=== PATIENT | male | born 1930 | race Caucasian/White ===

== ENCOUNTER → 2017-08-23 | Outpatient (CLI) | payer MEDICARE, BC ==
[~2017-08-23] MED LIST: ACE500 PO; ACET-1927 PO; ACET-1935 PO; ACET-2031 PO; AMOX-559 PO; ANITBIOTIC; ASPI-1441 PO; AZIT-18 PO; BACDS PO; CA C1TAB85 PO; CARB-275 OP; CARB1DRO25 OP; CARV25TA77 PO; CEF300 PO; CEP500 PO; CET10 PO; CHOL100059 PO; CLO75 PO; DEXT1TAB PO; DIA5 PO; DOCU-214 PO; DORZ10DR20 OD; DORZ10DR20 OP; DOXY-179 PO; ERG400 PO; ERGO500025 PO; EZET1TAB64 PO; FELO10TA34 PO; FELO5TAB34 PO; FLUT16SP20 NS; FOL1 PO; GUAI600T PO; IOPAMIDOL 76% 75 ML INFUS BTL 75 ML ONE; IPRA30SP NS; L.AC1CAP6 PO; LIDOCAINE; LISI-353 PO; LOR5/325 PO; LOSA-50 PO; MAALOX; METO-231 PO; METO-259 PO; METO25TA89 PO; METR45GE7 TP; METXL50 PO; MULT-820 PO; NAPR-1043 PO; NEOSYNEPHRINE; NIFS30 PO; NIT4 SL; OFF PLAVIX; OM-31CAP12 PO; OMEP-218 PO; OXYC20TA86 PO; PER PO; PHENA200 PO; SIMV-42 PO; SODI1PAC NS; SPIR25TA78 PO; TAM4 PO; TER2 PO; VALS1TAB64 PO; VALS1TAB96 PO; VALS40TA6 PO; [UNRECOGNIZED DRUG - CODE] PO; [UNRECOGNIZED DRUG - CODE] PO; [UNRECOGNIZED DRUG - CODE] TP; [UNRECOGNIZED DRUG - OTHER]; [UNRECOGNIZED DRUG - REMARK]
--- NOTE | 2017-08-23 10:24 | RADIOLOGY IMAGING REPORT ---
FACILITY: [facility] PATIENT NAME: Ochoa Cisneros : 1930 MR: [id number] V: [id number] EXAM DATE: ORDERING PHYSICIAN: MARIA C FELICIANO TECHNOLOGIST: Location: [facility] [place] Patient: Ochoa Cisneros : 1930 Visit/Account:[id number] Date of Sevice: 08/23/2017 ABDOMEN/PELVIS WITH CONTRAST HISTORY: Elevated PSA, hematuria TECHNIQUE: Following administration of IV contrast contiguous axial images acquired through the abdom en/pelvis. Coronal and sagittal reformatting also performed. Dose Lowering Technique One of the following dose optimization techniques was utilized in the performance of this exam: Autom ated exposure control; adjustment of the mA and/or kV according to the patient's size; or use of an i terative reconstruction technique. Specific details can be referenced in the facility's radiology C T exam operational policy. CONTRAST: 75 mL Isovue-370 COMPARISON: July 23, 2009 FINDINGS: Visualized lung bases: Moderate scarring in the lung bases bilaterally Hepatobiliary: There Is a 1.2 cm septated cyst lateral aspect right lobe of the liver Spleen: Negative. Adrenals: There is mild thickening of the left adrenal gland unchanged Pancreas: Negative. Kidneys ureters or bladder: There are bilateral upper pole renal cysts and additional small hypodensi ties in both kidneys likely representing additional cysts although are too small to characterize. Th e bladder is mostly decompressed Genitalia: Prostate gland appears enlarged and is extremely heterogeneous impinging upon the floor t he bladder GI: There is diverticulosis of the left-sided colon although no CT evidence of acute diverticulitis is a small hiatal hernia Vessels/spaces/nodes: There are severe vascular calcifications seen throughout the abdominal aorta a nd branch vessels. There is a right common iliac artery stent Bones/soft tissues: Negative. Additional findings: None pertinent. IMPRESSION: There is moderate scarring in the lung bases bilaterally Bilateral upper pole renal cyst and additional small hypodensities in both kidneys which likely repre sent cysts although are too small to characterize The prostate gland is enlarged and extremely heterogeneous impinging upon the floor the bladder Additional chronic findings as described Report Dictated By: Eva Rose MD at 08/23/2017 9:27 AM Report E-Signed By: Eva Rose MD at 08/23/2017 10:20 AM WSN:[email or web address]
--- NOTE | 2017-08-23 12:51 | RADIOLOGY IMAGING REPORT ---
FACILITY: [facility] PATIENT NAME: Ochoa Cisneros : 1930 MR: [id number] V: [id number] EXAM DATE: ORDERING PHYSICIAN: MARIA C FELICIANO TECHNOLOGIST: Location: [facility] Patient: Ochoa Cisneros : 1930 Visit/Account:[id number] Date of Sevice: 08/23/2017 WHOLE BODY BONE SCAN HISTORY: Elevated PSA TECHNIQUE: 26.1 mCi technetium 99m HDP was injected intravenously. Delayed anterior and posterior wh ole body gamma camera images were obtained. Additional gamma camera images: Right left lateral skull COMPARISON: None. FINDINGS: Bone radiotracer activity: There is a focal area of isotope uptake over the right side of the mandib le. There are several focal areas of isotope uptake seen over the lower cervical spine likely degenerativ e in nature. There is additional small focal area of isotope uptake seen over the posterior aspect of an upper l eft rib. Degenerative type uptake is noted over the shoulders elbows the knees and the ankles Extraosseous radiotracer activity: Unremarkable. Renal and urinary collecting system activity: Unremarkable. IMPRESSION: Focal area of isotope uptake over the right side of the mandible may be related to dental issues. Cl inical correlation needed Several focal areas of isotope uptake over the lower cervical spine are likely degenerative in nature although could be confirmed with plain radiographs or cross-sectional imaging Small focal area of isotope uptake over the posterior aspect of an upper left rib likely related to a prior fracture Multi focal areas of degenerative type uptake Report Dictated By: Eva Rose MD at 08/23/2017 12:43 PM Report E-Signed By: Eva Rose MD at 08/23/2017 12:48 PM WSN:[email or web address]
== END ==
LOC: CT 01:23
PROVIDERS: ATTEND Urology
DX: M19.90 Unspecified osteoarthritis, unspecified site (principal); N28.1 Cyst of kidney, acquired; N40.0 Benign prostatic hyperplasia without lower urinary tract symptoms; K57.30 Diverticulosis of large intestine without perforation or abscess without bleeding; K44.9 Diaphragmatic hernia without obstruction or gangrene; I70.0 Atherosclerosis of aorta; Z95.818 Presence of other cardiac implants and grafts; R91.8 Other nonspecific abnormal finding of lung field
CPT/HCPCS: 74177; 78306; A9503; Q9967

== ENCOUNTER 2017-09-13 00:13 | Day surgery (SDC) | payer MEDICARE, BC ==
--- NOTE | 2017-09-11 09:15 | EKG ---
FACILITY: [facility] [place] PATIENT NAME: GENE HENRY : [id number] MR: [id number] V: [id number] EXAM DATE: ORDERING PHYSICIAN: MARIA C FELICIANO TECHNOLOGIST: CHANI Tillman Reason : PRE-OP Blood Pressure : / mmHG Vent. Rate : 074 BPM Atrial Rate : 074 BPM P-R Int : 126 ms QRS Dur : 084 ms QT Int : 394 ms P-R-T Axes : 074 054 060 degrees QTc Int : 437 ms Normal sinus rhythm Normal ECG When compared with ECG of 21-SEP-2014 08:10, No significant change was found Confirmed by JACQUELINE GUNTER ([id number]) on 09/11/2017 10:26:00 AM Referred By: BRADEN Confirmed By:JACQUELINE GUNTER
[2017-09-11 09:32] LABS: PLATELET COUNT, AUTOMATED 213 K/uL (150-450)
--- NOTE | 2017-09-12 16:27 | HISTORY AND PHYSICAL ---
DATE OF ADMISSION: September 13, 2017 CHIEF COMPLAINT Elevated PSA with abnormal digital rectal exam. HISTORY OF PRESENT ILLNESS The patient is an 87-year-old white male with a history of increasing PSA and significantly abnormal rectal exam. 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 At that time, he was evaluated with anesthetic cystoscopy in the OR as well as a CT and bilateral retrograde pyelograms which were all normal. At that time, his PSA was fairly stable at approximately 5.5 to 6. This was in 2009. Since that time , his PSA has steadily increased and is now currently 17. In 2010, a PCA3 test was performed which was positive. In 2013, a 4Kscore test was performed which revealed a 62% chance of having a high-grade cancer. Recently, he has had a CT scan performed which was negative for any evidence of metastatic or local disease. However, he did have an extremely heterogeneous prostate which measured approximately 40 mL. A bone scan was also negative. The patient has been extremely reluctant to undergo a biopsy of his prostate, and given the patient's age, I felt this was not an unreasonable request. However, now with his PSA approaching 20, having the diagnosis of prostate cancer may be beneficial in the near future if we need to initiate antigen deprivation therapy or other interventions. Patient is extremely anxious concerning a biopsy and possible side effects. I have had multiple extensive discussions with Mr. Cisneros concerning the above findings. The risk for sepsis is approximately 1:5000 and is increased in people who have been recently exposed to antibiotics or have been hospitalized or had foreign travel. He currently has none of these risk factors. Bleeding infections were also discussed and explained, which were extremely rare to have a significant bleeding episode. Increase in lower urinary tract symptoms was also explained and discussed. The plan is now to take the patient to the operating room for an anesthetic possible cystoscopy, followed by transrectal ultrasound biopsy of the prostate. PAST MEDICAL HISTORY * Peripheral vascular disease with claudication. * Hypercholesterolemia. * Irritable bowel syndrome. * Hypertension. * Remote history of bladder cancer in 1979. * History of TIA. * Basal cell carcinoma of the skin approximately 20 years ago. * History of gross painless hematuria. * Insomnia. * Gout. PAST SURGICAL HISTORY * Open simple prostatectomy. * Right orchiectomy. * Left inguinal hernia. * Transurethral resection of low-grade bladder tumor in 1980. * Local basal cell skin cancer removal. * Anesthetic cystoscopy with bilateral retrograde pyelograms 2009. * Colonoscopy. ALLERGIES LOSARTAN, ASPIRIN, and CEFDINIR. CURRENT MEDICATIONS * Lipitor. * Felodipine. * Nitrostat. * Multivitamins. FAMILY HISTORY Noncontributory. REVIEW OF SYSTEMS The patient denies shortness of breath, productive cough, chest pains, dyspnea on exertion, bleeding disorder, chronic headaches, gross hematuria, flank pain, change in weight, or decreased energy level. PHYSICAL EXAMINATION GENERAL: The patient is an elderly white male in no acute distress. HEENT: Normocephalic, atraumatic. CHEST: Clear to auscultation bilaterally. CARDIOVASCULAR: Regular rate and rhythm. ABDOMEN: Soft, nontender. No masses are palpated. GENITOURINARY: Deferred to the OR. EXTREMITIES: No clubbing, cyanosis, or edema. NEUROLOGIC: Nonfocal. IMPRESSION An 87-year-old white male with significantly increasing PSA with abnormal digital rectal exam, worrisome for prostate cancer. He has also had several bowel markers which also put him at an increased risk. PLAN We will perform transrectal ultrasound biopsy of the prostate with possible cystoscopy. AIXA
[~2017-09-13] VITALS: Ht 175.3 cm; Wt 56.7 kg
[~2017-09-13 00:13] MED LIST changes: +CETI1TAB80 PO; -IOPAMIDOL 76% 75 ML INFUS BTL 75 ML ONE
[2017-09-13] MEDS ORDERED: PROPOFOL EMUL(*) 10MG/ML 20 ML 20 ML ONE (07:54)
[2017-09-13] MEDS ORDERED: fentaNYL CITR 100 MCG/2 ML AMP ONE (07:54)
[2017-09-13] MEDS ORDERED: LIDOCAINE MPF 1% 5 ML VIAL ONE (07:54)
[2017-09-13] MEDS ORDERED: DEXAMETHASONE SOD 4 MG/ML VIAL ONE (07:54)
[2017-09-13] MEDS ORDERED: ONDANSETRON 4 MG/2 ML VIAL ONE (07:54)
[2017-09-13 08:34] VITALS: BP 188/87
[2017-09-13] MEDS ORDERED: MIDAZOLAM 2 MG/2 ML VIAL IVP PRN (09:25)
[2017-09-13] MEDS ORDERED: LIDOCAINE/SOD BICARB 8.4% SYR ID ONE (09:25)
[2017-09-13] MEDS ORDERED: FAMOTIDINE 20 MG TAB PO ONE (09:25)
[2017-09-13] MEDS ORDERED: LEVOFLOXACIN/D5W*500 MG/100 ML 100 ML IVPB ONE (09:25)
[2017-09-13] MEDS ORDERED: NORMOSOL R SOLN(*) 1000 ML BAG 1,000 ML IV PRN (09:25)
--- NOTE | 2017-09-13 09:53 | RADIOLOGY IMAGING REPORT ---
[facility] PATIENT NAME: Ochoa Cisneros : 1930 MR: [id number] V: [id number] EXAM DATE: [id number] ORDERING PHYSICIAN: MARIA C PEDERSEN TECHNOLOGIST: Location: [facility] Patient: Ochoa Cisneros : 1930 Visit/Account:[id number] Date of Sevice: 09/13/2017 Exam type: PROSTATE BIOPSY History: Elevated PSA Comparison: None. Findings: Prostate biopsy was performed by Dr. Pedersen. Sonographic assistance was provided. Please see Dr. Fernando spangler's note for complete details IMPRESSION: 1. As above Report Dictated By: Eva Rose MD at 09/13/2017 9:48 AM Report E-Signed By: Eva Rose MD at 09/13/2017 9:49 AM WSN:[email or web address]
[2017-09-13] MEDS ORDERED: DOCU-416 PO (09:55)
[2017-09-13] MEDS ORDERED: LEVO500T83 PO (09:55)
[2017-09-13 10:20] VITALS: BP 155/76
[2017-09-13 10:43] VITALS: BP 148/78
[2017-09-13 10:44] VITALS: BP 153/78
--- NOTE | 2017-09-13 17:36 | OPERATIVE REPORT 1 ---
EVENT DATE: September 13, 2017 SURGEON: Santos Pedersen MD ANESTHESIOLOGIST: Corby James MD ANESTHESIA: General anesthetic. PREOPERATIVE DIAGNOSIS Elevated prostate-specific antigen with abnormal digital rectal exam. POSTOPERATIVE DIAGNOSIS Elevated prostate-specific antigen with abnormal digital rectal exam. PROCEDURES PERFORMED 1. Transrectal ultrasound of prostate. 2. Prostate needle biopsy times 12. 3. Transrectal ultrasound guidance needle biopsy of prostate times 12. ESTIMATED BLOOD LOSS 5 mL INTRAVENOUS FLUIDS Crystalloids. PATHOLOGY 12 separate cords sent in separate containers from right and left medial, lateral, base, mid apex. FINDINGS 1. A 31 mL volume prostate. 2. Nodular regrowth of transition zone on left side with diffuse peripheral zone heterogeneity. COMPLICATIONS None. CONDITION Patient taken to the recovery room awake, in stable condition. STATEMENT OF MEDICAL NECESSITY Patient is an 87-year-old white male with increasing PSA over the past several years, which his most recent PSA in the office was 17. A repeat PSA today was approximately 13.5. His digital rectal exam is grossly abnormal with significant induration and asymmetry. He is now being brought to the operating room for planned transrectal ultrasound with a biopsy of the prostate. DESCRIPTION OF PROCEDURE PERFORMED Patient was brought to the operating room. After general anesthetic was attained, he was placed in dorsal lithotomy position on the cystoscopic table. Transurethral ultrasound of the prostate was performed after digital rectal exam. Digital rectal exam revealed an empty rectal vault with normal sphincter tone. His prostate was diffusely firm and asymmetric with the right being smaller than the left. After this was performed, the end-fire ultrasound probe was introduced into the patient's rectum atraumatically. I performed an ultrasound of the prostate. Director Trade pictures were obtained at the base, mid, and apex, as well as lateral and medial images. Volume was calculated at 31 mL. On the ultrasound image, he was noted to have what appeared to be a nodular regrowth of the prostate mainly on the left side starting at the base, proceeding out to the mid prostate. At the transition zone, the peripheral zone surrounding this was diffusely heterogeneous with both hypoechoic and hyperechoic areas throughout. At this point, prostate biopsy was performed. The ultrasonic needle guidance marker was then placed on the screen to aid in biopsy needle location. A total of 12 separate ultrasound-guided needle biopsies were performed in the prostate starting on the right lateral base, proceeding across the base to the right medial, left medial, and left lateral, then proceeding to the mid gland and the apex with four across each level. Each biopsy core was sent in a separate container. At the conclusion of biopsy , the ultrasound probe was removed. He was taken down from the dorsal lithotomy position. He was awakened in the operating room and taken to the recovery area in stable condition. The patient will be discharged home on Colace and two more days of Levaquin. We will plan to see him in the Urology Clinic in one week to review his pathology. AIXA
== END 2017-09-13 10:20 | disposition home or self-care (01) ==
LOC: OR 00:13
PROVIDERS: ATTEND Urology
DX: R97.20 Elevated prostate specific antigen [PSA] (principal); I10 Essential (primary) hypertension; Z86.73 Personal history of transient ischemic attack (TIA), and cerebral infarction without residual deficits; N41.9 Inflammatory disease of prostate, unspecified
CPT/HCPCS: 36415; 55700; 76942; 81001; 84153; 85025; 87088; 88305; 88344; 93005; A9270; J1100; J1956; J2001; J2250; J2405; J2704; J3010

== ENCOUNTER → 2017-11-01 | Outpatient (CLI) | payer MEDICARE, BC ==
[~2017-11-01] MED LIST changes: +DOCU-416 PO; +LEVO500T83 PO
[2017-11-01 08:53] LABS: PLATELET COUNT, AUTOMATED 191 K/uL (150-450)
--- NOTE | 2017-11-01 10:03 | RADIOLOGY IMAGING REPORT ---
FACILITY: [facility] [place] PATIENT NAME: Ochoa Cisneros : 1930 MR: [id number] V: [id number] EXAM DATE: ORDERING PHYSICIAN: MARIA C FELICIANO TECHNOLOGIST: [facility] Patient: Ochoa Cisneros : 1930 Visit/Account:[id number] Date of Sevice: 11/01/2017 Clinical history: Prostate cancer. Long-term use of Lupron. Osteoporosis. Comparison: None. LUMBAR SPINE: The bone mineral density (BMD) measured from L1-L4 correlates with a Z-score of 5.2 and a T-score of 3.8 which is normal as defined by the World Health Organization. The corresponding risk of fracture in the lumbar spine is not increased compared with a young adult reference population. HIP: Bone mineral density (BMD) measured in the left total hip region correlates with a Z-score of 2.4 and a T-score of 0.6 which is normal as defined by the World Health Organization. The corresponding ris k of fracture in the hip is not increased compared with a young adult reference population. Bone mineral density (BMD) measured in the left femoral neck correlates with a Z-score of 2.7 and a T -score of 0.5 which is normal as defined by the World Health Organization. The corresponding risk of fracture in the hip is not increased compared with a young adult reference population. Bone mineral density (BMD) measured in the left Femoral Neck region measures 1.138 g/cm2. Impression: 1. Lumbar spine: Normal. 2. Left total hip: Normal. 3. Left femoral neck: Normal 4. Left femoral neck Bone Mineral Density is 1.138 g/cm2 The next DEXA scan of this patient should include the following sites: Lumbar spine and left hip. FRAX? WHO Fracture Risk Assessment Tool link: http://www.shef.ac.uk/FRAX/tool.jsp?locationValue=9 PLEASE NOTE: 1) The World Health Organization defines low BMD as follows: T-score Normal > -1 Osteopenia < -1 and > -2.5 Osteoporosis < -2.5 without fractures Established osteoporosis < -2.5 with fractures 2) In general, you may wish to consider: Diagnosis Treatment Follow-up DEXA Normal BMD Prevention 2-3 years Osteopenia Prevention/therapy 1-2 years Osteoporosis Therapy Yearly 3) Fracture risk estimated from the T-score is more accurate for vertebral fractures (often spontane ous) than for hip fractures. Report Dictated By: Celina Fitzgerald MD at 11/01/2017 9:55 AM Report E-Signed By: Celina Fitzgerald MD at 11/01/2017 9:59 AM WSN:[id number]
== END ==
LOC: RAD 08:35
PROVIDERS: ATTEND Urology
DX: C61 Malignant neoplasm of prostate (principal); M85.88 Other specified disorders of bone density and structure, other site; M81.0 Age-related osteoporosis without current pathological fracture; Z79.818 Long term (current) use of other agents affecting estrogen receptors and estrogen levels
CPT/HCPCS: 36415; 77080; 82040; 82247; 82310; 82374; 82435; 82565; 82947; 84075; 84132; 84153; 84155; 84295; 84403; 84450; 84460; 84520; 85025

== ENCOUNTER → 2017-11-30 | Outpatient (CLI) | payer MEDICARE, BC ==
[2017-11-30 07:49] LABS: PLATELET COUNT, AUTOMATED 184 K/uL (150-450)
== END ==
LOC: LAB 07:25
PROVIDERS: ATTEND Urology
DX: C61 Malignant neoplasm of prostate (principal); M85.88 Other specified disorders of bone density and structure, other site; M81.0 Age-related osteoporosis without current pathological fracture; Z79.818 Long term (current) use of other agents affecting estrogen receptors and estrogen levels
CPT/HCPCS: 36415; 82040; 82247; 82310; 82374; 82435; 82565; 82947; 84075; 84132; 84153; 84155; 84295; 84403; 84450; 84460; 84520; 85025

== ENCOUNTER → 2017-12-01 | Outpatient (CLI) | payer MEDICARE, BC | LOC: LAB 07:55 | PROVIDERS: ATTEND Urology | DX: C61 Malignant neoplasm of prostate (principal); R35.0 Frequency of micturition; R35.1 Nocturia | CPT/HCPCS: 81001; 87088 ==

== ENCOUNTER 2018-01-04 11:11 | Outpatient (RCR) | payer MEDICARE, BC ==
--- NOTE | 2017-10-10 16:23 | ONCOLOGY CONSULTATION ---
EVENT DATE: October 09, 2017 REASON FOR CONSULTATION Newly diagnosed prostate carcinoma with significant elevation of PSA and high grade malignancy. Patient is here to discuss therapeutic options. STAGE T2B, clinical N0 M0. HISTORY OF PRESENT ILLNESS This is a pleasant 87-year-old gentleman who was referred to me by Dr. Pedersen to discuss therapeutic options for newly diagnosed prostate carcinoma. The patient presently is a very active 87-year-old gentleman. His voiding score is stable with an AUA of 4 and nocturia times one. He enjoys walking daily. The patient has a prior history of obstructive uropathy back in 1980. At that time he underwent an open resection of a bladder carcinoma, from his memory, as well as a central prostatectomy. That procedure effectively relieved his voiding issues at that juncture. The patient recently underwent urologic assessment by Dr. Pedersen and during that visit he was found to have a significantly abnormal gland with a palpable nodule involving the left lobe. PSA was drawn on August 15, 2017 and run at [facility]. The value was significantly elevated at 17.6 ng/mL. Metabolic panel was otherwise normal. Patient had repeat blood studies drawn on September 11, 2017 with normal CBC and the PSA remained elevated at 13.2 ng/mL. The patient was advised to undergo a prostate biopsy, which was performed on September 13, 2017. Twelve core specimens were submitted, 5 of 12 core biopsies were positive for malignancy. In two of the core biopsy specimens from the left lobe which correlated with the palpable nodule, tumor was appreciated as a 3+4=7 occupying 40% of the biopsy specimen. Those core biopsies were from the left lateral middle and the left lateral base of the prostate. Bobby 6 tumor was noted from the right base, right lateral base and the right lateral middle biopsy specimens. The patient then underwent a CT of the abdomen and pelvis and bone scan. Bone scan was entirely normal. The CT scan reveals an enlarged prostate at 4.9 x 4.0 x 3.9 cm with a volume of 40 cc. The prostate in general is enlarged with impingement on the base on the floor of the bladder. No hydronephrosis. No pelvic lymphadenopathy is noted. No signs of bony metastatic disease. Patient does have cysts on both kidneys. I reviewed the findings with the patient today on the computer screen and there is also irregularity of the peripheral portion of the gland with asymmetry of the gland particularly towards the left side. Seminal vesicals are prominent. The patient has read a book regarding understanding prostate cancer. He is here to discuss options for therapeutic management, and he has a follow-up appointment with Dr. Pedersen next week. The patient has a family history of prostate carcinoma in his father. He believes that his father was diagnosed in his 60s or early 70s. Patient's mother had a form of aggressive bone cancer and both the patient's father and mother in their mid 80s. PAST MEDICAL HISTORY 1. Prostate carcinoma history listed above. 2. History of transitional cell carcinoma of the bladder, 1979. 3. History of gout. 4. History of minor CVA in 2006. 5. Peripheral vascular disease. PAST SURGICAL HISTORY 1. Previous cataract repair. 2. Left inguinal hernia repair. 3. Basal cell carcinoma of the skin removal. 4. History of simple prostatectomy for BPH in 1980. 5. History of transurethral resection of low grade bladder cancer in 1980. CURRENT MEDICATIONS 1. Lipitor. 2. Felodipine. 3. Nitrostat. 4. MVI. ALLERGIES 1. LOSARTAN. 2. ASPIRIN. 3. CEFDINIR. FAMILY HISTORY Notable for prostate carcinoma in the patient's father and primary bone malignancy in the patient's mother. COMPREHENSIVE REVIEW OF SYSTEMS Notable for weight loss of approximately 20 pounds in the last year. No respiratory complaints. No cardiovascular complaints at this time. Does have some musculoskeletal complaints of right foot pain intermittently. States he has had a previous CVA, but no symptoms at this time. He does have a history of gout. AUA score is 4. No bowel issues at this time. Remote history of IBS. PHYSICAL EXAMINATION GENERAL: A pleasant 87-year-old gentleman who appears younger than his stated age by five to 10 years. VITAL SIGNS: BP is 147/77, pulse 68, respirations 16, O2 sat 98%. Weight 134. LYMPH NODES: No peripheral lymphadenopathy. LUNGS: Clear to auscultation bilaterally. HEART: Sounds regular. No audible murmur. ABDOMEN: Soft with no gross organomegaly. RECTAL: Examination was abnormal. There is a palpably enlarged prostate gland with significant asymmetry. There is a large 2 cm elevation of the left lobe of the gland with firm induration consistent with malignancy. No tenderness is noted. The right lobe was unremarkable. EXTREMITIES: Reveal no edema or cyanosis. NEUROLOGIC: Exam is grossly intact. IMPRESSION AND RECOMMENDATIONS This is a pleasant 87-year-old gentleman with a family history of prostate carcinoma. He presents with a significantly enlarged gland with palpable induration and elevation of the left lobe of the gland. PSA was elevated in the 14-17 range. The latter is very concerning for the presence of extracapsular tumor extension and the patient is at higher risk for occult involvement of regional lymph nodes and/or bone. In the process of decision/recommendations, our first question is whether the patient's life expectancy would be five years. If that answer is yes, the options available to the patient include primary treatment with external tello radiotherapy or prostate brachytherapy. In general we have favored the use of ADT therapy for a minimum of six months. The majority of tumors are sensitive to Lupron, although resistance may develop after 24 months. After determining the patient had an intermediate risk carcinoma, I advised him that in clinical trials looking at ADT therapy alone or ADT therapy plus radiation, there was a 25% progression-free survival with hormone therapy alone in the trials and 75% control with a combination of ADT plus external beam radiotherapy. The radiation doses can be modified with multiple treatment techniques to minimize toxicity. Altered fractionation programs are available which would deliver effective radiotherapy doses in approximately three and a half weeks. I also listed out the standard fractionation program to the patient as an option. In general we have not utilized brachytherapy alone for the high grade 7 tumors, particularly with multiple adverse features which this patient has (palpable nodule and PSA elevation above 10). That said, this treatment remains an option for the patient as he could receive limited dose external beam radiotherapy and subsequent brachytherapy boost which is an effective therapeutic option. With careful attention to detail, the risk of acute side effects and treatment-related complications should be under 5%. Acute side effects would typically be limited to urgency or frequency, which is generally self-limited. Rectal irritation symptoms can be minimized with tight margins on the gland with modern CT treatment planning. Radiation doses and duration of therapy would be modified lower in view of his age to improve tolerance. At the end of one hour discussion with the patient reviewing his pathology report, radiographic studies and the natural history of prostate carcinoma as well as therapeutic options, patient and I made a mutual decision tentatively for him to see Dr. Pedersen next week and proceed with 30 mg Lupron injection IM. I asked the patient to start a 30-day course of bicalutamide at 50 mg a day. This would be utilized for only 30 days to prevent any flare response of the Lupron, which would temporarily increase testosterone. I would then like to reassess the patient in the clinic in approximately eight weeks and further discuss the three radiation therapy options with the patient at that time depending on his wishes. He is also aware of the fact that he could select no therapy, however, that would not be strongly advised at this time by medical consultants since he has a Bobby 7 tumor with a PSA in the 13- 17 range. Quality of life would be significantly diminished if the tumor would metastasize to bone or if bladder outlet obstruction is produced by the malignancy. He has an advanced localized tumor by the rectal exam today. Patient expressed gratitude for the information that was provided to him today. I reassured him that I would be happy to go over options multiple times with the patient to help describe to him how effectively he could get through a therapeutic program with strong limitation of any adverse effects through dose modifications as well as margin selection. The ADT course utilizing Lupron and/ or Casodex could also be modified at any time. will meet next week to decide the next steps from here. Thank you for the referral and opportunity to discuss therapeutic options with Omero Blayne today. [facility]
--- NOTE | 2017-12-31 13:25 | Oncology Progress Note ---
History of Present Illness Evaluation Evaluation Date: Dec 31, 2017 Evaluation Time: 11:00 Accompanied by Accompanied by: Self Last seen by : Juan 12/11/2017 Chief Complaint Chief Complaint "Rash on right groin" Oncology History Oncology History 09/2017 This is a pleasant 87-year-old gentleman who was referred to me by Dr. Pedersen to discuss therapeutic options for newly diagnosed prostate carcinoma. The patient presently is a very active 87-year-old gentleman. His voiding score is stable with an AUA of 4 and nocturia times one. He enjoys walking daily. The patient has a prior history of obstructive uropathy back in 1980. At that time he underwent an open resection of a bladder carcinoma, from his memory, as well as a central prostatectomy. That procedure effectively relieved his voiding issues at that juncture. The patient recently underwent urologic assessment by Dr. Pedersen and during that visit he was found to have a significantly abnormal gland with a palpable nodule involving the left lobe. PSA was drawn on August 15, 2017 and run at [employer]. The value was significantly elevated at 17.6 ng/mL. Metabolic panel was otherwise normal. Patient had repeat blood studies drawn on September 11, 2017 with normal CBC and the PSA remained elevated at 13.2 ng/mL. The patient was advised to undergo a prostate biopsy, which was performed on September 13, 2017. Twelve core specimens were submitted, 5 of 12 core biopsies were positive for malignancy. In two of the core biopsy specimens from the left lobe which correlated with the palpable nodule, tumor was appreciated as a 3+4=7 occupying 40% of the biopsy specimen. Those core biopsies were from the left lateral middle and the left lateral base of the prostate. Bobby 6 tumor was noted from the right base, right lateral base and the right lateral middle biopsy specimens. The patient then underwent a CT of the abdomen and pelvis and bone scan. Bone scan was entirely normal. The CT scan reveals an enlarged prostate at 4.9 x 4.0 x 3.9 cm with a volume of 40 cc. The prostate in general is enlarged with impingement on the base on the floor of the bladder. No hydronephrosis. No pelvic lymphadenopathy is noted. No signs of bony metastatic disease. Patient does have cysts on both kidneys. I reviewed the findings with the patient today on the computer screen and there is also irregularity of the peripheral portion of the gland with asymmetry of the gland particularly towards the left side. Seminal vesicals are prominent. The patient has read a book regarding understanding prostate cancer. He is here to discuss options for therapeutic management, and he has a follow-up appointment with Dr. Pedersen next week. The patient has a family history of prostate carcinoma in his father. He believes that his father was diagnosed in his 60s or early 70s. Patient's mother had a form of aggressive bone cancer and both the patient's father and mother in their mid 80s. Treatment Treatment Lupron injections and XRT fraction 3/40 fx today 12/31/2017. HPI HPI Mr. 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 on treatment with Lupron injections and XRT fraction 3/40 fx today 12/31/2017. Patient is seen here at the cancer Center he's awake alert oriented 4, hemodynamically stable. on physical assessment there a medium over a quarter size oval shaped lesion on the right groin with redness, and occasional blister.Patient reports that rash has been there since he started radiation therapy. denies itchiness, no drainage present. He denies any fevers at home, no chills, no SOB, no cardiac type chest pain, no dizziness, headaches, no changes in bowel and bladder pattern. He is very active as he continues to work on his house and keep active with ADLs, as well as fly the airplanes as a hobby. Significant PMH of History of transitional cell carcinoma of the bladder, 1979. History of minor CVA in 2006; Peripheral vascular disease; Previous cataract repair. History of simple prostatectomy for BPH in 1980. History of transurethral resection of low grade bladder cancer in 1980; Basal cell carcinoma of the skin removal. Left inguinal hernia repair.History of gout. Living Conditions Lives alone, 2 years ago. Social/Occupational History Social History: Social History This is a 87 Yr old White male, he is M and has [] Children Hx Smoking: No Smoking Status: Never Smoker Exposure to Second Hand Smoke?: No Allergies & Medications Allergies: Coded Allergies: Losartan (Verified Allergy, Intermediate, causes bleeding, 09/21/14) aspirin (Verified Allergy, Intermediate, causes bleeding, 09/21/14) cefdinir (Verified Allergy, Unknown, 09/21/14) Home Meds Active Scripts Acetaminophen 500 Mg Tab (ACETAMINOPHEN EXTRA STRENGTH) 500 Mg Tablet, 500 MG PO Q4-6H for 1 Day, TAB Prov:EDDY-SANDRITA BRYAN [employer]-C, ONC 12/31/17 Reported Medications Leuprolide Acet 11.25 Mg O9fgmue (LUPRON DEPOT 11.25 MG [id number]) 11.25 Mg Syringekit, 30 MG IM DIRECTED, SYR EVERY 4 MONTHS 12/12/17 Felodipine (FELODIPINE ER) 5 Mg Tab.er.24h, 10 MG PO DAILY 09/21/14 L.acidoph & Paracasei,B.lactis (Probiotic) 1 Each Capsule, 1 CAP PO DAILY 09/21/14 Om-3/Epa/Dha/Fish Oil/Flax/E (THERA TEARS NUTRITION CAPSULE) 1 Each Capsule, 2 EACH PO DAILY, CAPSULE 09/21/14 Review of Systems Constitution: Denies Appetite/Weight Change, Denies Fever/Chills/Sweating, Denies Recent Infection, Denies Other HEENT: No EARS: Tinnitus, No NOSE: Nasal Discharge, No THROAT: Sore Throat, No EYES: Dipolpia, No EARS: Hearing Problems, No NOSE: Epistaxis, No THROAT: Mouth Ulcers, No EYES: Vision Change, No OTHER Respiratory: No Cough, No Expectoration, No Hemoptysis, No Shortness of Breath , No OTHER Cardiovascular: No Chest Pain, No Orthopnea, No Edema, No Palpitations, No OTHER Gastrointestinal: No Nausea, No Vomitting, No Diarrehea, No Constipation, No Heart Burn, No Swallowing Difficulties, No Abdominal Pain, No Other Gentiourinary: No Hematuria, No Dysuria, No Nocturia, No Other Musculoskeletal: No Muscle Pain, No Joint Pain, No Bone Pain, No Other Hematological: No Bleeding, No Weakness, No Enlarged Lyph Nodes, No Bruising, No Fatigue, No Other Skin: Skin Rash, No Lumps, No Erythema, No Dry Skin, No Moist Skin, No Other Psychiatric: No Anxiety, No Depression, No Other Vital Signs Vital Signs Temperature: 97.0 Pulse: 64 BP Systolic: 157 BP Diastolic: 75 Respiratory Rate: 16 O2 SAT: 96% O2 Delivery: Room Air Height (feet) Height (inches) Weight lb: 125 Weight oz: 8.0 Weight Kg (Jackson): Pain: 0 ECOG-0 Physical Exam General: Looks Stable, Well Developed, Well Nourished, Other (In no acute distress.) HEENT: No HEAD:Atraumatic, No EYES: Conjuctivitis, No EYES: Icterus, No MOUTH: Mucocitis, No MOUTH: Oral Thrush, No SINUS: Tenderness to Palpation, No Other Neck: Supple, No Cervical Lymphadenopathy, No Subclavicular Lymphadopathy, No Thyromegaly, No Other Lungs: Clear to Auscultation, Percussion Bilaterally Abdomen: No Soft and Nontender, No Hepatosplenomegaly, No Masses, No Other Extremities: No Cyanosis, No Clubbing, No Edema, No Other Lymphatics: No Peripheral Lymphadenopathy, No Other Psychiatric: Mood appears normal, Affect appears normal Skin: Skin Rashes (right groin), No Bruising, No Purpura, No Moist Desquamation , No Dry Desquamation, No Errythema, No Mild Errythema, No Moderate Errythema, No Severe Errythema, No Induration, No Other Breast: No Masses Assessment and Plan Assessment and Plan Mr. 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 on treatment with Lupron injections and XRT fraction 3/40 fx today 12/31/2017. Patient is seen here at the cancer Center he's awake alert oriented 4, hemodynamically stable. DIAGNOSTIC DATA Reviewed on [facility]. within acceptable parameters. 1. Prostate carcinoma with significant elevation of PSA and high grade malignancy Biopsy proven Dx:09/2017. followed by rad onc Dr. Martinez and Dr. Pedersen.on treatment with Lupron injections and XRT fraction 3/40 fx today 2017. 2. Inguinal candidiasis. Patient reports rash has been there since initiation of radiation. we will treat with fluconazole 150 Po daily X6 days, with a loading dose of 400mg Po once. and monitor closely. PLAN - Continue XRT as planned -Initiate fluconazole loading dose 400mg Po X1 dose today. followed by 150mg Po x 6 days. -Patient to inform us by Sunday if rash improve. -Patient to call Cancer Center with any issues or concerns. CHRONIC 1.Prostate carcinoma history listed above. 2. History of transitional cell carcinoma of the bladder, 1979. 3. History of gout. 4. History of minor CVA in 2006. 5. Peripheral vascular disease. Education, patient instructed to go to ER immediately and or call Clinic if any Shortness of Breath, Temp >/=100.4, fevers, chills, cardiac type chest pain, bleeding, excessive bruising, headaches, blurry vision, dizziness, abdominal pain, difficulty swallowing, and pain unrelieved by medication. TIME SPENT: 20 minutes 15 > minutes includes but not limited to discussion, counselling and co-ordination~ of care. Discussion with other health care providers, record review, review of lab work, diagnostic tests. Plan discussed extensively with patient. All the questions answered today. Thank you for the opportunity to be involved in the care of Mr. Blayne Packer. Billing Level: Return visit 3 SANDRITA CALDERON, ONC Dec 31, 2017 13:25
[~2018-01-04 11:11] MED LIST changes: +ACET-2146 PO; +LEUP11.26 IM
== END 2018-01-06 ==
LOC: RAON 11:11
PROVIDERS: ATTEND Radiology Radiation Oncology
DX: C61 Malignant neoplasm of prostate (principal)
CPT/HCPCS: 77290; 77336; 77385; G0463; 77280; 77300; 77301; 77338; 99203; 99212; 99213

== ENCOUNTER 2018-03-05 13:48 | Outpatient (RCR) | payer MEDICARE, BC ==
[2018-02-19 12:21] VITALS: BP 136/66
[2018-02-19 12:27] LABS: PLATELET COUNT, AUTOMATED 192 K/uL (150-450)
[2018-03-04 14:55] VITALS: BP 156/76
[2018-03-04 15:32] LABS: PLATELET COUNT, AUTOMATED 202 K/uL (150-450)
== END 2018-04-07 ==
LOC: RAON 13:48
PROVIDERS: ATTEND Radiology Radiation Oncology
DX: Z51.0 Encounter for antineoplastic radiation therapy (principal); C61 Malignant neoplasm of prostate
CPT/HCPCS: 36415; 77280; 77290; 77300; 77301; 77336; 77338; 77385; 84153; 84403; 85025; G0463; 77295; 82040; 82247; 82310; 82374; 82435; 82565; 82947; 84075; 84132; 84155; 84295; 84450; 84460; 84520; 99212

== ENCOUNTER 2018-05-14 09:56 | Outpatient (RCR) | payer MEDICARE, BC ==
[2018-05-13 08:36] VITALS: BP 155/76
== END 2018-07-01 08:41 | disposition home or self-care (01) ==
LOC: RAON 09:56
PROVIDERS: ATTEND Radiology Radiation Oncology
DX: Z51.0 Encounter for antineoplastic radiation therapy (principal); C61 Malignant neoplasm of prostate
CPT/HCPCS: 36415; 84153; G0463; 99212

== ENCOUNTER → 2018-07-23 | Outpatient (CLI) | payer MEDICARE, BC ==
[~2018-07-23] MED LIST changes: +REGADENOSON 0.4 MG/5 ML SYR ONE
--- NOTE | 2018-07-23 14:30 | RADIOLOGY IMAGING REPORT ---
FACILITY: [facility] [place] PATIENT NAME: Ochoa Cisneros : 1930 MR: [id number] V: [id number] EXAM DATE: ORDERING PHYSICIAN: MICHAEL BALTAZAR TECHNOLOGIST: Location: [facility] [place] Patient: Ochoa Cisneros : 1930 Visit/Account:[id number] Date of Sevice: 07/23/2018 REGADENOSON (LEXISCAN) MYOCARDIAL PERFUSION IMAGING. EXAMINATION: Single isotope SPECT imaging with regadenoson infusion and gated SPECT imaging. DATE OF EXAMINATION: July 23, 2018. REQUESTING PHYSICIAN:GIOVANNY INDICATION: Shortness of breath with exercise PROCEDURE: After informed consent the patient received an intravenous injection of Tc-99m sestamibi followed at an appropriate time interval by rest imaging. The patient then subsequently received an intravenous infusion of 0.4 mg of regadenoson per protocol without complication. Resting heart rate was 65 bpm with a peak heart rate of 88 bpm. Blood pressure at rest was 212/90 and following infusi on was 220/97 . Baseline EKG demonstrates sinus rhythm. There were no EKG changes of ischemia follo wing infusion. Non-specific symptoms were reported. The patient then received an intravenous inject ion of Tc-99m sestamibi followed by stress imaging. DOSE of Tc-99m sestamibi (mCi): REST: 12.5 STRESS: 29.5 RAW DATA: Examination of the summed raw data revealed a excellent quality study. MYOCARDIAL PERFUSION: The tomographic images demonstrate normal myocardial perfusion. GATED IMAGES: The gated images demonstrate normal LV systolic performance and wall motion with LVEF 61%. IMPRESSION: 1. Nondiagnostic ECG portion of Lexiscan stress test. 2. Normal myocardial perfusion study without evidence of myocardial ischemia or infarct 3. Normal LV systolic performance and wall motion with LVEF 61% Report Dictated By: Vamshi Pinon at 07/23/2018 2:22 PM Report E-Signed By: Vamshi Pinon at 07/23/2018 2:26 PM WSN:[id number]
== END ==
LOC: NUC 02:08
PROVIDERS: ATTEND Internal Medicine Cardiovascular Disease
DX: I73.9 Peripheral vascular disease, unspecified (principal); R06.09 Other forms of dyspnea
CPT/HCPCS: 78452; 93017; A9500; J2785

== ENCOUNTER → 2018-08-09 | Outpatient (CLI) | payer MEDICARE, BC ==
[~2018-08-09] MED LIST changes: -REGADENOSON 0.4 MG/5 ML SYR ONE
== END ==
LOC: US 13:02
PROVIDERS: ATTEND Internal Medicine Cardiovascular Disease
DX: I07.1 Rheumatic tricuspid insufficiency (principal); I35.1 Nonrheumatic aortic (valve) insufficiency
CPT/HCPCS: 93306

== ENCOUNTER → 2018-11-25 | Outpatient (CLI) | payer MEDICARE, BC ==
[~2018-11-25] MED LIST changes: +ATOR20TA22 PO; +FLUC100T39 PO; +LEVO50TA86 PO
--- NOTE | 2018-11-27 21:00 | RT HOLTER TEST ---
FACILITY: [facility] [place] PATIENT NAME: GENE HENRY : [id number] MR: [id number] V: [id number] EXAM DATE: ORDERING PHYSICIAN: MICHAEL BALTAZAR TECHNOLOGIST: AMPARO Grullon-up date: 2018-11-25 08:41:00 Duration: 24:00:00 Test Indications: BRADYCARDIA Medications: 63152 QRS complexes 1024 Ventricular ectopics which represent 1 % of total QRS comp. 102 Supraventricular ectopics which represent <1 % of total QRS comp. * Paced QRS complexes which represent % of total QRS comp. VENTRICULAR ECTOPY 1022 Isolated 3 Bigeminal Cycles 1 Couplets 0 Runs 0 Beats in Runs * Beats LONGEST at * BPM at :: -- * Beats FASTEST at * BPM at :: -- SUPRAVENTRICULAR ECTOPY 88 Isolated 3 Couplets 1 Runs 8 Beats in Runs 8 Beats LONGEST at 118 BPM at 04:01:51 2018-11-26 8 Beats FASTEST at 118 BPM at 04:01:51 2018-11-26 HEART RATES 49 MIN at 01:15:51 2018-11-26 69 AVG 120 MAX at 04:01:53 2018-11-26 LONGEST RR 1.584 secs at 02:49:08 2018-11-26 S-T LEVELS Channel 1 -12.800 mm MIN at 08:41:00 2018-11-25 -12.800 mm MAX at 08:41:00 2018-11-25 Channel 2 -12.800 mm MIN at 08:41:00 2018-11-25 -12.800 mm MAX at 08:41:00 2018-11-25 Channel 3 -12.800 mm MIN at 08:41:00 2018-11-25 -12.800 mm MAX at 08:41:00 2018-11-25 The patient had 2 reported symptoms. He was in a sinus rhythm at an appropriate rate for both. He w as predominantly in a sinus rhythm with some ventricular ectopy and rare supraventricular ectopy (SVE). He did have an asymptomatic 8 beat run of SVE at a rate of 118 beats per minute (bpm). Confirmed by JAIDEN VILCHIS ([id number]) on 11/27/2018 8:58:04 PM Referred By: Overread By: JAIDEN VILCHIS
== END ==
LOC: RESP 06:53
PROVIDERS: ATTEND Internal Medicine Cardiovascular Disease
DX: R00.1 Bradycardia, unspecified (principal)
CPT/HCPCS: 93225; 93226